=== PATIENT | female | born 1965 | race Caucasian/White ===

== ENCOUNTER → 2016-11-27 | Outpatient (CLI) | payer BC ==
[~2016-11-27] MED LIST: ASPI81TA28 PO; ATOR-22 PO; FURO20TA PO; ISOS30TA51 PO; LISI-729 PO; MAGN1TAB19 PO; MECL1TAB42 PO; METO25TA3 PO; NTRGSL/4 UT; OMEP40CA41 PO; PARO30TA3 PO; POTA10TA32 PO; TICA1TAB PO
[2016-11-27 18:21] LABS: BLOOD UREA NITROGEN 11 mg/dl (7-18); BUN/CREATININE RATIO 11.8 (10-20); CALCIUM 8.9 mg/dl (8.5-10.1); CARBON DIOXIDE 25 mmol/L (21-32); CHLORIDE 105 mmol/L (98-107); CHOLESTEROL 240 mg/dl (0-200); CREATININE 0.95 mg/dl (0.60-1.20); GLUCOSE 104 mg/dl (70-99); POTASSIUM 3.7 mmol/L (3.5-5.1); SODIUM 139 mmol/L (136-145)
[2016-11-27 18:24] LABS: CHOLESTEROL/HDL RATIO 4.8; HDL CHOLESTEROL 50 mg/dl; LDL CHOLESTEROL CALCULATED 132 mg/dl; TRIGLYCERIDES 290 mg/dl (0-150); VERY LOW DENSITY LIPOPROT CALC 58 mg/dl
== END | disposition home or self-care (01) ==
LOC: C.LABPVFM 13:24
PROVIDERS: ATTEND Nurse Practitioner
DX: E78.5 Hyperlipidemia, unspecified (principal); I25.10 Atherosclerotic heart disease of native coronary artery without angina pectoris

== ENCOUNTER 2018-02-04 20:47 | Emergency (ER) | payer BC, OTHER ==
[~2018-02-04] VITALS: Ht 180.3 cm; Wt 91.2 kg
[~2018-02-04 20:47] MED LIST changes: -ISOS30TA51 PO; +ISR/30 PO; -METO25TA3 PO; +METO25TA4 PO
[2018-02-04 20:58] VITALS: TEMP 36.8; Ht 180.3 cm; Wt 91.2 kg
--- NOTE | 2018-02-04 21:37 | DIAGNOSTIC IMAGING REPORT ---
R FINGER(S) MIN 2 VIEWS ROUTINE CLINICAL HISTORY: 52 years-old Female presenting with right ring finger pain. TECHNIQUE: Frontal, oblique, and lateral views of the right fourth finger were obtained. COMPARISON: None. FINDINGS: No acute fracture or malalignment. No advanced degenerative change. No radiographic soft tissue abnormality. IMPRESSION: No acute osseous injury. Electronically signed by: Jj John M.D. 02/04/2018 9:36 PM Dictated Date/Time: 02/04/2018 9:34 PM
[2018-02-04] MEDS ORDERED: ROSU20TA33 PO (22:00)
--- NOTE | 2018-02-04 22:14 | EMERGENCY ROOM VISIT NOTE ---
History First contact with patient: 21:08 Chief Complaint: FINGER PAIN Stated Complaint: RT HAND, 4TH DIGIT PAIN History of Present Illness The patient is a 52 year old female who presents to the Emergency Room with complaints of right fourth finger pain. The patient reports that on 5 hours ago , she was driving and felt pain in her right fourth finger in the proximal medical. She feels that the knuckle is swollen. She states she is having difficulty moving her finger. She reports that there was no injury to the finger. She was out running errands today but does not remember hurting the finger in any way. There has been no redness and no fevers. She denies any history of similar symptoms. She does report arthritis and occasionally has pains in the other knuckles of her fingers. Review of Systems A complete 6 point review of systems was reviewed with the patient with pertinent positives and negatives as per history of present illness. All else were negative. Past Medical/Surgical History Medical Problems: (1) Acute PR (2) Anoxic brain injury (3) Cardiac arrest (4) STEMI (ST elevation myocardial infarction) Family History Diabetes mellitus Heart disease Social History Smoking Status: Current Every Day Smoker Alcohol Use: occasionally Marital Status: single Housing Status: lives alone Occupation Status: retired Current/Historical Medications Scheduled Aspirin (Aspirin Ec), 81 MG PO QAM Furosemide (Lasix), 20 MG PO QAM Lisinopril (Prinivil), 5 MG PO QAM Magnesium Oxide (Mg Supplement (Magnesium Oxide), 400 MG PO BID Metoprolol Succinate (Toprol Xl), 25 MG PO QAM Nitroglycerin (Nitrostat), 0.4 MG UT PRN Paroxetine HCl (Paroxetine), 1 TAB PO QAM Potassium Chloride Microencaps (Potassium Chloride Er), 1 TAB PO BID Rosuvastatin Calcium (Rosuvastatin Calcium), 20 MG PO DAILY Ticagrelor (Brilinta), 1 TAB PO BID Scheduled PRN Meclizine Hcl (Meclizine Hcl), 1 TAB PO TID PRN for VERTIGO Omeprazole (Prilosec), 40 MG PO DAILY PRN for Heartburn Physical Exam Vital Signs Date Time Temp Pulse Resp B/P (MAP) Pulse Ox O2 Delivery O2 Flow Rate FiO2 02/04/18 22:22 74 18 114/71 97 02/04/18 20:58 36.8 81 17 91/60 96 Room Air Physical Exam VITALS: Vitals are noted on the nurse's note and reviewed by myself. Vital signs stable. GENERAL: This is a 52-year-old female, in no acute distress, nondiaphoretic, well-developed well-nourished. SKIN: Capillary reflex less than 2 seconds. HEART: Regular rate and rhythm without murmurs gallops or rubs. LUNGS: Clear to auscultation bilaterally without wheezes, rales or rhonchi. MUSCULOSKELETAL: No obvious abnormalities of the right fourth finger. There is no significant edema on exam. There is no erythema. There is tenderness to palpation of the right fourth MCP. Full range of motion of all fingers. NEURO: Patient was alert and oriented to person place and time. Distal sensation intact. Medical Decision & Procedures ER Provider Diagnostic Interpretation: R FINGER(S) MIN 2 VIEWS ROUTINE CLINICAL HISTORY: 52 years-old Female presenting with right ring finger pain. TECHNIQUE: Frontal, oblique, and lateral views of the right fourth finger were obtained. COMPARISON: None. FINDINGS: No acute fracture or malalignment. No advanced degenerative change. No radiographic soft tissue abnormality. IMPRESSION: No acute osseous injury. Medical Decision Differential diagnosis includes fracture, contusion, sprain, arthritis, cellulitis, among others. The patient was evaluated as above. X-ray of the finger was obtained and read by radiology with no acute findings. There is no evidence of cellulitis on exam. Patient was advised to ice the finger and take [id number] medicine for pain. She was instructed to follow-up with her PCP within 48 hours for a recheck. She will return here with any worsening or new/concerning symptoms. She verbalized understanding of my assessment and treatment plan and was discharged home in good condition. Medication Reconcilliation Current Medication List: was personally reviewed by me Blood Pressure Screening Patient's blood pressure: Normal blood pressure Impression Primary Impression: Finger pain Departure Information Dispostion Home / Self-Care Condition GOOD Referrals Steph Rosen, C.R.N.P (PCP) Patient Instructions My [facility] Additional Instructions For pain control, you can use the following [id number] medicines (if >12 yo): - Regular strength (325mg/tab) Tylenol (acetaminophen) 2 tabs every 4-6 hours as needed. Do not exceed 12 tablets in a 24 hour period. Avoid taking more than 4 grams (4000 mg) of Tylenol per day. This includes any other sources of acetaminophen you may take on a regular basis. Apply ice to the finger to help decrease inflammation. Elevate the finger to help reduce swelling. Follow-up with your primary care provider for recheck. Return to the emergency department with any worsening or new/concerning symptoms. Problem Qualifiers Primary Impression: Finger pain Laterality: right Qualified Codes: M79.644 - Pain in right finger(s)
[2018-02-04 22:22] VITALS: BP 114/71; PULSE 74; O2SAT 97
== END 2018-02-04 22:27 | disposition home or self-care (01) ==
LOC: C.EDB 20:49 → C.EDD 22:27
DX: M79.644 Pain in right finger(s) (principal); I21.3 ST elevation (STEMI) myocardial infarction of unspecified site; F17.200 Nicotine dependence, unspecified, uncomplicated; Z79.82 Long term (current) use of aspirin

== ENCOUNTER → 2018-02-16 | Outpatient (CLI) | payer OTHER ==
[~2018-02-16] MED LIST changes: -ATOR-22 PO; -ISR/30 PO; +ROSU20TA33 PO
[2018-02-16 17:59] LABS: BLOOD UREA NITROGEN 17 mg/dl (7-18); CALCIUM 9.3 mg/dl (8.5-10.1); CARBON DIOXIDE 25 mmol/L (21-32); CREATININE 1.07 mg/dl (0.60-1.20); GLUCOSE 111 mg/dl (70-99); POTASSIUM 3.9 mmol/L (3.5-5.1); SODIUM 140 mmol/L (136-145)
== END | disposition home or self-care (01) ==
LOC: C.LABPVFM 13:46
PROVIDERS: ATTEND Nurse Practitioner
DX: E78.5 Hyperlipidemia, unspecified (principal); I25.10 Atherosclerotic heart disease of native coronary artery without angina pectoris

== ENCOUNTER → 2018-04-27 | Outpatient (CLI) | payer OTHER ==
[~2018-04-27] MED LIST changes: +ROSU20TA24 PO; -ROSU20TA33 PO
--- NOTE | 2018-04-27 16:19 | MAMMOGRAPHY REPORT ---
UNILATERAL RIGHT DIGITAL DIAGNOSTIC MAMMOGRAM TOMOSYNTHESIS AND RIGHT ULTRASOUND: 04/27/2018 CLINICAL HISTORY: 53-year-old woman called back from screening mammography for a 5 mm nodular asymmet ry in the slightly lateral, middle one third of the right breast on the CC tomosynthesis images. TECHNIQUE: Spot compression right CC and MLO tomosynthesis images were obtained. COMPARISON: Comparison is made to exams dated: 04/20/2018 mammogram, 03/05/2016 mammogram, 02/01/2016 ma mmogram, 03/05/2016 ultrasound, 10/20/2014 mammogram, and 01/22/2011 mammogram - [facility] nter. BREAST COMPOSITION: The tissue of right breast is heterogeneously dense, which may obscure small mass es. FINDINGS: The spot compression right CC tomosynthesis view demonstrates complete effacement of the 5 mm nodular asymmetry in the slightly lateral, middle one third of the breast. There is no definite p ersistent architectural distortion, mass, focal asymmetry or suspicious calcification. Further evalu ation with ultrasound was performed. Targeted ultrasound was performed in the lateral right breast including the 12:00, retroareolar and 6 :00 axes. Incidental note is made of an anechoic cyst in the 7:00 axis, 2 cm from the nipple, measur ing approximately 3.4 x 3.2 x 2.1 mm. It is unclear if this could explain the effacing mammographic asymmetry nevertheless it has a benign sonographic appearance. Overall, given the effacement of the nodular asymmetry on additional tomosynthesis images and no susp icious sonographic correlate this most likely represented normal overlapping tissue although given th e discrete nodular appearance on the screening exam, a six-month short interval follow-up right diagn ostic tomosynthesis mammogram and possible ultrasound is recommended to ensure stability. IMPRESSION: ACR-BI-RADS CATEGORY 3: PROBABLY BENIGN, ULTRASOUND ACR-BI-RADS CATEGORY 3: PROBABLY RICKY GN 1. There is effacement of the 5 mm nodular asymmetry with supplemental spot compression tomosynthesi s images, and no suspicious sonographic correlate identified. Although this most likely represented normal overlapping tissue, a short interval follow-up right diagnostic tomosynthesis mammogram and po ssible ultrasound is recommended to ensure stability in 6 months. These results and recommendations were discussed with the patient at the time of the exam. She tenta tively scheduled a follow-up appointment prior to leaving our department. Some breast cancers are not detected with mammography. A negative mammographic report should not cathy y biopsy if a clinically suggestive mass is present. Janay Hernández M.D. ay/:04/27/2018 08:23:56 Barrel Raiser: RT Elyse(R)(M), [facility] letter sent: Follow Up Recommended 3 OVERALL STUDY BIRADS: 3 Probably benign
== END | disposition home or self-care (01) ==
LOC: C.MAMM 07:49
PROVIDERS: ATTEND Nurse Practitioner
DX: N64.89 Other specified disorders of breast (principal)

== ENCOUNTER 2023-03-18 21:27 | Observation (INO) ==
[2023-03-18] MEDS ORDERED: SODIUM CHLORIDE 0.9% 1000ML 500 ML IV ONE (22:07)
[2023-03-18] MEDS ORDERED: ONDANSETRON INJ 2 MG/ML 2 ML VIAL IV STA (22:07)
[2023-03-18] MEDS ORDERED: MoRPHine SULFATE 4 MG/ML 1 ML CARP\\VIAL IV STA ×2 (22:07→23:57)
--- NOTE | 2023-03-18 22:11 | Emergency Department Note ---
Impression & Plan Chest pain ADMIT ED Provider Note HPI: The patient is a very pleasant 58-year-old female who presents the emergency department with a chief complaint of left upper back pain and diaphoresis. Patient states that her symptoms started approximately 1.5 hours prior to arr ival here to the ED. Patient states she did have some milder symptoms dating back to yesterday however they acutely worsened about an hour and half prior to arrival. Patient states she has some pain in the area of her left upper back, she states this does feel similar to the AK she had in the past approximately 9 years ago which did require stent placement. Patient states she is on aspirin and Plavix. On arrival here to the ED the patient is alert, she states her pain is improved from previous. She is hemodynamically stable and saturating well on room air on my initial assessment. ROS: - Per HPI Differential Diagnosis: Acute coronary syndrome, pulmonary embolism, aortic dissection, pneumothorax, amongst other potential pathologies. *Outpatient medications and allergy history reviewed. *Pertinent external medical records reviewed. 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 On arrival here to the ED the patient states her symptoms are improved. IV was established and lab work obtained, patient was placed on quality assurance monitor final. Lab work shows no leukocytosis, hemoglobin is stable at 14.8, platelet count is normal, CMP does not show any critical findings, troponin is negative. EKG does not show any evidence of any acute ischemic changes, no evidence of ST elevation AK. CT angiography of the chest was obtained and shows no evidence of pulmonary embolism, no evidence of any aortic dissection. Prior to my reassessment of the patient I was informed by the bedside RN that she was requesting more pain medicine, patient states she did have some return of the pain in the area of her left upper back. Pain is atypical in nature, however given that it is ongoing and she has significant history of coronary artery disease and previous STEMI with stent I do feel she should be admitted for observation. Patient was in agreement to this plan. Case was discussed with the on-call hospitalist, Dr. Woodson, and the patient was placed for admission in stable condition. Consultants: Hospitalist, Dr. Woodson Disposition discussion held by myself with: Patient Diagnosis: 1. Chest pain, acute 2. History of coronary artery disease status post stent Disposition: ADMIT Omkar Cuevas, DO Emergency Medicine Past Med/Surg History Medical History Biceps tendinitis of left shoulder Biceps tendonitis BPPV (benign paroxysmal positional vertigo) Coronary artery disease GERD (gastroesophageal reflux disease) Greater tuberosity of humerus fracture Hypertension Nose fracture Shoulder dislocation Shoulder, capsulitis, adhesive Vertigo Surgical History H/O knee surgery History of heart artery stent Family History Mother Breast cancer Coronary heart disease Hypertension Cancer Heart disease Colorectal cancer Father Lung cancer Sister Breast cancer Hypertension Cancer Other No family history of adverse response to anesthesia No family history of bleeding disorder Denies family history of Ovarian cancer Prostate cancer Myocardial infarction Social History (Updated 09/04/22 @ 09:52 by Liliana Jacques LPN) Smoking Status: Never smoker Tobacco Type: Cigarettes Cigarettes Per Day: 10; Second Hand Exposure: No; Do You Dip or Chew Tobacco: No; Hx Alcohol Use: Yes (rare) Alcohol Intake Frequency: Monthly or Less Hx Substance Use: No Preferred Language: Uruguayan Communication Ability: Effective Development Manager Required: No marital status: Current Living Situation: Alone current occupational status: retired How many Children do You have: 0 Feels Safe at Home: Yes Childhood Exposure to Second-Hand Smoke: Yes Diet: regular caffeine: Yes (Tea ) Dental Care, Regularly: Yes Physical Activity Frequency: Daily Seatbelt Use: always Sunscreen Use: No Allergies Allergies Allergy/AdvReac Type Severity Reaction Status Date / Time Iodinated Contrast Media AdvReac Intermediate VOMIT Verified 10/03/22 14:17 Home Meds Home Medications Medication Instructions Recorded Confirmed aspirin 81 mg tablet,delayed 81 mg PO DAILY #30 tabs 06/23/19 03/19/23 release nitroglycerin 0.4 mg sublingual 0.4 mg sublingual Q5M PRN Chest 06/23/19 03/19/23 tablet Pain #1 tab cholecalciferol (vitamin D3) 25 25 mcg PO DAILY 09/06/20 03/19/23 mcg (1,000 unit) capsule omeprazole magnesium 20 mg 20 mg PO DAILY PRN Heartburn 03/19/23 03/19/23 tablet,delayed release Previous Rx's Medication Instructions Recorded magnesium oxide 400 mg (241.3 mg 400 mg PO BID #180 tabs 06/29/22 magnesium) tablet clopidogrel 75 mg tablet 75 mg PO DAILY #90 tabs 09/01/22 rosuvastatin 20 mg tablet 20 mg PO DAILY #90 tabs 10/03/22 furosemide 20 mg tablet 20 mg PO DAILY #90 tabs 10/29/22 lisinopril 5 mg tablet 5 mg PO DAILY #90 tabs 10/29/22 metoprolol succinate 25 mg 25 mg PO DAILY #90 tabs 10/29/22 tablet,extended release 24 hr potassium chloride 10 mEq 10 meq PO BID #180 tabs 11/06/22 tablet,extended release paroxetine HCl 40 mg tablet 40 mg PO DAILY #90 tabs 12/31/22 Results & Data (ED) Vital Signs Vital Signs - 24 hr 03/18/23 21:31 03/18/23 21:51 03/18/23 22:00 Temperature 35.5 C L Temperature Source Temporal Artery Scan Pulse Rate 83 67 62 Pulse Rate from SpO2 Sensor 61 Respiratory Rate 20 23 Blood Pressure 113/76 114/79 Blood Pressure Mean 88 90 Pulse Oximetry 94 94 Oxygen Delivery Method Room Air Sepsis Recent Fever Within 48 Hours No Sepsis New/Unexplained Change in Mental Status No Sepsis Action Taken by Nursing No Action Required Laboratory Data 03/18/23 21:34 03/18/23 21:34 Lab Results 03/18/23 03/18/23 03/18/23 Range/Units 21:34 21:34 21:34 WBC 7.36 (4.8-10.8) K/ul RBC 4.61 (4.20-5.40) M/uL Hgb 14.8 (12.0-16.0) g/dl Hct 42.6 (37.0-47.0) % MCV 92.4 (80.0-100.0) fL MCH 32.1 (25.0-34.0) pg MCHC 34.7 (32.0-36.0) g/dL RDW Std Deviation 41.8 (36.4-46.3) fL RDW Coeff of Holden 12.4 (11.5-14.5) % Plt Count 238 (130-400) K/uL MPV 10.3 (9.4-12.4) fL Immature Gran % (Auto) 0.3 % Neut % (Auto) 48.5 % Lymph % (Auto) 40.4 % [place] % (Auto) 7.7 % Eos % (Auto) 2.4 % Baso % (Auto) 0.7 % Neut # (Auto) 3.57 (1.40-6.50) K/uL Lymph # (Auto) 2.97 (1.2-3.4) K/uL [place] # (Auto) 0.57 (0.11-0.59) K/uL Eos # (Auto) 0.18 (0-0.50) K/uL Baso # (Auto) 0.05 (0-0.2) K/uL Immature Gran # (Auto) 0.02 (0.01-0.20) K/uL PT 9.8 (9.0-12.0) Seconds INR 0.9 (0.9-1.1) APTT 24.6 (21.0-31.0) Seconds PTT Ratio 0.9 Sodium 141 (136-145) mmol/L Potassium 3.7 (3.5-5.1) mmol/L Chloride 109 H (98-107) mmol/L Carbon Dioxide 23 (21-32) mmol/L Anion Gap 9 (3-11) BUN 24 H (6-23) mg/dl Creatinine 1.28 H (0.6-1.2) mg/dl Est Cr Clr Drug Dosing 60.0 ml/min Est GFR ( Amer) 53.0 ml/min Est GFR (Non-Af Amer) 45.7 ml/min BUN/Creatinine Ratio 18.8 (10-20) Glucose 141 H (70-99(Fasting)) mg/dl Calcium 9.2 (8.6-10.3) mg/dl Total Bilirubin 0.4 (0.2-1.0) mg/dl AST 26 (13-39) U/L ALT 22 (7-52) U/L Alkaline Phosphatase 75 (34-104) U/L Troponin I High Sens 3.5 (0-14) pg/ml Total Protein 6.8 (6.0-8.3) gm/dl Albumin 4.3 (3.4-5.0) gm/dl Globulin 2.5 (2.5-4.0) gm/dl Albumin/Globulin Ratio 1.7 (0.9-2) SARS-CoV-2, RNA, NAAT (NEGATIVE) 03/19/23 Range/Units Unknown WBC (4.8-10.8) K/ul RBC (4.20-5.40) M/uL Hgb (12.0-16.0) g/dl Hct (37.0-47.0) % MCV (80.0-100.0) fL MCH (25.0-34.0) pg MCHC (32.0-36.0) g/dL RDW Std Deviation (36.4-46.3) fL RDW Coeff of Holden (11.5-14.5) % Plt Count (130-400) K/uL MPV (9.4-12.4) fL Immature Gran % (Auto) % Neut % (Auto) % Lymph % (Auto) % [place] % (Auto) % Eos % (Auto) % Baso % (Auto) % Neut # (Auto) (1.40-6.50) K/uL Lymph # (Auto) (1.2-3.4) K/uL [place] # (Auto) (0.11-0.59) K/uL Eos # (Auto) (0-0.50) K/uL Baso # (Auto) (0-0.2) K/uL Immature Gran # (Auto) (0.01-0.20) K/uL PT (9.0-12.0) Seconds INR (0.9-1.1) APTT (21.0-31.0) Seconds PTT Ratio Sodium (136-145) mmol/L Potassium (3.5-5.1) mmol/L Chloride (98-107) mmol/L Carbon Dioxide (21-32) mmol/L Anion Gap (3-11) BUN (6-23) mg/dl Creatinine (0.6-1.2) mg/dl Est Cr Clr Drug Dosing ml/min Est GFR ( Amer) ml/min Est GFR (Non-Af Amer) ml/min BUN/Creatinine Ratio (10-20) Glucose (70-99(Fasting)) mg/dl Calcium (8.6-10.3) mg/dl Total Bilirubin (0.2-1.0) mg/dl AST (13-39) U/L ALT (7-52) U/L Alkaline Phosphatase (34-104) U/L Troponin I High Sens (0-14) pg/ml Total Protein (6.0-8.3) gm/dl Albumin (3.4-5.0) gm/dl Globulin (2.5-4.0) gm/dl Albumin/Globulin Ratio (0.9-2) SARS-CoV-2, RNA, NAAT NEGATIVE (NEGATIVE) Administered Medications Discontinued Medications Aspirin (Aspirin Chew 324 Mg) 324 mg PO NOW STA Stop: 03/18/23 23:58 Last Admin: 03/19/23 00:03 Dose: 324 mg Documented By: BHARGAV Sodium Chloride (Nss 1000ml) 500 mls @ 999 mls/hr IV .Q31M ONE Stop: 03/18/23 22:37 Last Infusion: 03/18/23 22:44 Dose: 0 mls/hr Documented By: Admin: 03/18/23 22:13 Dose: 999 mls/hr Documented By: AYUSH Ioversol (Optiray 320 500ml) 102 ml IV ONCE ONE Stop: 03/18/23 23:11 Last Admin: 03/18/23 23:10 Dose: 102 ml Documented By: ASHUTOSH Morphine Sulfate (Morphine Sulfate 4 Mg/Ml 1 Ml Carp\Vial) 4 mg IV NOW STA Stop: 03/18/23 22:08 Last Admin: 03/18/23 22:16 Dose: 4 mg Documented By: NRB Morphine Sulfate (Morphine Sulfate 4 Mg/Ml 1 Ml Carp\Vial) 4 mg IV NOW STA Stop: 03/18/23 23:58 Last Admin: 03/18/23 23:59 Dose: 4 mg Documented By: BHARGAV Ondansetron HCl (Ondansetron Inj 2 Mg/Ml 2 Ml Vial) 4 mg IV NOW STA Stop: 03/18/23 22:08 Last Admin: 03/18/23 22:15 Dose: 4 mg Documented By: NRLizeth Imaging Data Radiologist's Impression: Chest CTA 03/18/23 22:08 Exam(s): CTA CHEST IV Amt: 102ml of optiray 320 EXAM: CT Angiography Chest With Intravenous Contrast CLINICAL HISTORY: Reason for exam: PE. TECHNIQUE: Axial computed tomographic angiography images of the chest with intravenous contrast. CTDI is 36 mGy and DLP is 805.5 mGy-cm. Automated exposure control was utilized for the study. A dose lowering technique was utilized adhering to the principles of ALARA. MIP reconstructed images were created and reviewed. COMPARISON: Chest CT 01/23/2015 FINDINGS: Pulmonary arteries: No pulmonary embolism. Aorta: No acute findings.. Normal caliber. No dissection. Lungs: Mild scattered groundglass in the periphery of the upper lobes and dependently in the lower lobes. Some of this represents atelectasis however there may also be a component of atypical infection. Pleural space: Unremarkable. Heart: Unremarkable. Bones/joints: No acute fracture. Soft tissues: Unremarkable. Lymph nodes: Unremarkable. IMPRESSION: 1. No pulmonary embolism. 2. Mild scattered groundglass in the periphery of the upper lobes and dependently in the lower lobes. Some of this represents atelectasis however there may also be a component of atypical infection. Electronically signed by: Lalit Osullivan MD 03/18/23 23:42 PM Discharge Plan Visit Data Chief Complaint: Chest Pain Stated Complaint: HEART ISSUES,SEVERE BACK PAIN,SWEATING,DIFF BREATH ED Provider: Omkar Cuevas Discharge Problem: Chest pain Forms Stand Alone Forms: [facility] [address] [employer] Prescriptions Prescriptions: No Action magnesium oxide 400 mg (241.3 mg magnesium) tablet 400 mg PO BID Qty: 180 3RF clopidogrel 75 mg tablet 75 mg PO DAILY Qty: 90 3RF rosuvastatin 20 mg tablet 20 mg PO DAILY Qty: 90 3RF furosemide 20 mg tablet 20 mg PO DAILY Qty: 90 3RF lisinopril 5 mg tablet 5 mg PO DAILY Qty: 90 3RF metoprolol succinate 25 mg tablet extended release 24 hr 25 mg PO DAILY Qty: 90 3RF potassium chloride 10 mEq tablet extended release 10 meq PO BID Qty: 180 3RF paroxetine HCl 40 mg tablet 40 mg PO DAILY Qty: 90 3RF Rx Instructions: pt aware of dose change nitroglycerin 0.4 mg tablet, sublingual 0.4 mg SL Q5M PRN (Reason: Chest Pain) Qty: 1 aspirin 81 mg tablet,delayed release (DR/EC) 81 mg PO DAILY Qty: 30 cholecalciferol (vitamin D3) 25 mcg (1,000 unit) capsule 25 mcg PO DAILY omeprazole magnesium 20 mg Tablet,Delayed Release (Dr/Ec) 20 mg PO DAILY PRN (Reason: Heartburn) Referrals Referrals: Steph Rosen CRNP [Primary Care Provider] -
[2023-03-18 22:22] LABS: Basophils # (auto) 0.05 K/uL (0-0.2); Basophils % (auto) 0.7 %; Eosinophils # (auto) 0.18 K/uL (0-0.50); Eosinophils % (auto) 2.4 %; Hematocrit (blood only) 42.6 % (37.0-47.0); Hemoglobin 14.8 g/dl (12.0-16.0); Immature Granulocytes # (auto) 0.02 K/uL (0.01-0.20); Immature Granulocytes % (auto) 0.3 %; Lymphocytes # (auto) 2.97 K/uL (1.2-3.4); Lymphocytes % (auto) 40.4 %; Mean Corpuscular Hemoglobin 32.1 pg (25.0-34.0); Mean Corpuscular Hgb Conc 34.7 g/dL (32.0-36.0); Mean Corpuscular Volume 92.4 fL (80.0-100.0); Mean Platelet Volume 10.3 fL (9.4-12.4); Monocytes # (auto) 0.57 K/uL (0.11-0.59); Monocytes % (auto) 7.7 %; Neutrophils # (auto) 3.57 K/uL (1.40-6.50); Neutrophils % (auto) 48.5 %; Platelet Count 238 K/uL (130-400); RDW Coefficient of Variation 12.4 % (11.5-14.5); RDW Standard Deviation 41.8 fL (36.4-46.3); Red Blood Count 4.61 M/uL (4.20-5.40); White Blood Count 7.36 K/ul (4.8-10.8)
[2023-03-18 22:26] LABS: Albumin Globulin Ratio 1.7 (0.9-2); Albumin Level 4.3 gm/dl (3.4-5.0); BUN Creatinine Ratio 18.8 (10-20); Bilirubin,Total 0.4 mg/dl (0.2-1.0); Calcium 9.2 mg/dl (8.6-10.3); Est GFR (Non-African American) 45.7 ml/min; Globulin 2.5 gm/dl (2.5-4.0); Potassium 3.7 mmol/L (3.5-5.1); Total Protein 6.8 gm/dl (6.0-8.3)
[2023-03-18 22:33] LABS: Troponin I High Sensitivity 3.5 pg/ml (0-14)
[2023-03-18 22:36] LABS: INR 0.9 (0.9-1.1); Partial Thromboplastin Ratio 0.9; Partial Thromboplastin Time 24.6 Seconds (21.0-31.0); Prothrombin Time 9.8 Seconds (9.0-12.0)
[2023-03-18] MEDS ORDERED: OPTIRAY 320 500ml IV ONE (23:10)
--- NOTE | 2023-03-18 23:43 | CT Scan Report ---
Exam(s): CTA CHEST IV Amt: 102ml of optiray 320 EXAM: CT Angiography Chest With Intravenous Contrast CLINICAL HISTORY: Reason for exam: PE. TECHNIQUE: Axial computed tomographic angiography images of the chest with intravenous contrast. CTDI is 36 mGy and DLP is 805.5 mGy-cm. Automated exposure control was utilized for the study. A dose lowering technique was utilized adhering to the principles of ALARA. MIP reconstructed images were created and reviewed. COMPARISON: Chest CT 01/23/2015 FINDINGS: Pulmonary arteries: No pulmonary embolism. Aorta: No acute findings.. Normal caliber. No dissection. Lungs: Mild scattered groundglass in the periphery of the upper lobes and dependently in the lower lobes. Some of this represents atelectasis however there may also be a component of atypical infection. Pleural space: Unremarkable. Heart: Unremarkable. Bones/joints: No acute fracture. Soft tissues: Unremarkable. Lymph nodes: Unremarkable. IMPRESSION: 1. No pulmonary embolism. 2. Mild scattered groundglass in the periphery of the upper lobes and dependently in the lower lobes. Some of this represents atelectasis however there may also be a component of atypical infection. Electronically signed by: Lalit Osullivan MD 03/18/23 23:42 PM
[2023-03-18] MEDS ORDERED: ASPIRIN CHEW 324 MG PO STA (23:57)
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
[2023-03-19] MEDS ORDERED: NITROGLYCERIN SL 0.4 MG/TAB TAB SL PRN (02:27)
[2023-03-19] MEDS ORDERED: ACETAMINOPHEN 325 MG TAB PO PRN (02:27)
[2023-03-19] MEDS ORDERED: DOCUSATE SODIUM 100 MG CAP PO PRN (02:27)
[2023-03-19] MEDS ORDERED: ONDANSETRON INJ 2 MG/ML 2 ML VIAL IV PRN (02:27)
[2023-03-19] MEDS: MoRPHine SULFATE 2 MG/ML CARP IV PRN ×3 (03:14→11:58)
--- NOTE | 2023-03-19 07:16 | XRay Report ---
XR chest 1V portable CLINICAL HISTORY: Chest pain, nonspecific COMPARISON STUDY: Chest CT January 23, 2015. Chest radiograph May 09, 2020. FINDINGS: Lung volumes are normal. Lungs are clear. There is no pneumothorax or pleural effusion. Car diac size is normal. Mediastinal contours are normal. There is no evidence for pulmonary edema. IMPRESSION: No acute cardiopulmonary findings. ACT 112: Negative or not required by law. Electronically signed by: Yaw Song M.D. 03/19/2023 7:15 AM
[2023-03-19] MEDS ORDERED: POTASSIUM CHLORIDE 10 MEQ TABCR PO SCH (08:00)
[2023-03-19] MEDS ORDERED: CLOPIDOGREL BISULFATE 75 MG TAB PO SCH (09:00)
[2023-03-19] MEDS ORDERED: ROSUVASTATIN CALCIUM 20 MG TAB PO SCH (09:00)
[2023-03-19] MEDS ORDERED: PARoxetine HCL 20 MG TAB PO SCH (09:00)
[2023-03-19] MEDS ORDERED: METOPROLOL SUCC 25MG EXT REL TAB PO SCH (09:00)
[2023-03-19] MEDS ORDERED: MAGNESIUM OXIDE 400 MG TAB PO SCH (09:00)
[2023-03-19] MEDS ORDERED: lisinopril 5 MG TAB PO SCH (09:00)
[2023-03-19] MEDS ORDERED: FUROSEMIDE 20 MG TAB PO SCH (09:00)
[2023-03-19] MEDS ORDERED: ASPIRIN 81 MG ECTAB PO SCH (09:00)
--- NOTE | 2023-03-19 09:39 | Cardiology Consultation ---
Date of Consultation March 19, 2023 Assessment & Plan (1) Chest pain: (2) Ischemic cardiomyopathy: (3) Obstructive sleep apnea: (4) Dyslipidemia: (5) Coronary artery disease: (6) Hypertension: Plan 1. Back pain/chest pain: Symptoms have been ongoing for since Thursday a.m. with significant increase in symptoms last night. Today her only remaining symptom is left sided upper back pain. Her troponin has been low at 3.5, 3.4, and 3.2 this morning and her EKG has not shown acute changes which is all reassuring that her symptoms are not due to ACS. Chest CTA shows no evidence of PE or aortic dissection. Pericarditis lower in the differential given the nature of her pain. Based on her work up, her pain does not appear to have a cardiac etiology. 2. CAD, Hx of cardiac arrest, s/p GREGG to proximal LAD: Mrs. Noel has a significant history of coronary artery disease. She reports that she takes all of her medications as prescribed and follows routinely with Dr. Frost. Continue with Metoprolol Succinate, Lisinopril, Rosuvastatin, Aspirin, Clopidogrel. 3. Ischemic Cardiomyopathy: Per chart review, her most recent echo showed an EF of 40%, NYHA class 1 (in 2014) and no repeat echo has been completed since. If she still has a low EF, could consider some medication changes (Jardiance, Entresto) although would not make alterations at this time without a new echo. Patient does not appear to have symptoms of heart failure at this time. Continue maintenance Lasix. 4. Hypertension: Continue Metoprolol, Lisinopril. 5. Hyperlipidemia: Continue Rosuvastatin. 6. Tobacco Use: Patient continues to smoke cigarettes daily. Encouraged smoking cessation and further discussion with PCP of medications/tools to help quit. Supervising Physician Co-Signing Physician Notes I saw examined the patient with Dr. Alvarez in agree with her documentation. Briefly, the patient has a history of coronary disease having suffered an acute myocardial infarction in 2013. She subsequently underwent repeat intervention for acute stent thrombosis. Since that time she has actually done quite well. She generally does not have symptoms of exertional dyspnea, back pain or chest pain. She maintains a good level of activity. As described above she did develop symptoms back and shoulder discomfort. This eventually generalized include diaphoresis and nausea. Her symptoms were cardiac stent in nature but t here has been no elevation in her cardiac biomarkers. I think this effectively excludes ischemia as the etiology. She seems to have gotten some relief from morphine. Symptoms are notably pleuritic and positional in nature. No evidence of aortic dissection on her CT scan. I do not think she requires any additional cardiac testing as an inpatient. She does have a history of a cardiomyopathy which could be further evaluated and treated in the outpatient setting. Believe she is stable for discharge from cardiac standpoint on her current medical regimen. History of Present Illness Attending Physician: Colby Salgado, DO History of Present Illness Sanjuana Noel is a 58 year-old female with a past medical history of cardiac arrest in setting of anterior DE (2013) and s/p GREGG to proximal LAD with subsequent subacute stent thrombosis 1 week later requiring repeat PCI, HTN, HLD, sleep apnea, and ischemic cardiomyopathy. She states that on the morning of 03/17 she awoke with pain at the left side of her upper back. She initially thought that she pulled a muscle or slept wrong, but the pain remained throughout the day and into the . The pain is described as sharp and would increase with certain movements (i.e. rotating her torso) as well as with deep breaths. The pain also briefly traveled towards her left shoulder, she later also felt a twinge under her left breast. Her symptoms started to worsen last night around 8pm: the pain increased in intensity and she became nauseated and short of breath. Her only symptom with her prior DE was back pain and she was concerned that this could be another DE so she went to the ED. This morning she is feeling well, still notes upper back pain on her left side especially with movement- but her other symptoms have resolved. She denies any current chest pain, shortness of breath, nausea, lightheadedness, dizziness, or orthopnea. Mrs. Noel is a patient of Dr. Frost, she was most recently seen in office in September 2022. She most recently had a stress test in 2016 after a syncopal episode and her most recent echo showed EF of 40% (unknown year). She states she has taken all of her medications routinely without missing any doses- she is currently taking Metoprolol Succinate, Lisinopril, Lasix, Rosuvastatin, Aspirin, and Clopidogrel. She is a current cigarette smoker and has been smoking on and off for 30-40 years. She notes that she has quit smoking for several years at a time but ends up returning to smoking due to anxiety. Allergies Allergy/AdvReac Type Severity Reaction Status Date / Time Iodinated Contrast Media AdvReac Intermediate VOMIT Verified 10/03/22 14:17 Home Medications Medication Instructions Recorded Confirmed Type aspirin 81 mg tablet,delayed 81 mg PO DAILY #30 tabs 06/23/19 03/19/23 History release nitroglycerin 0.4 mg sublingual 0.4 mg sublingual Q5M PRN Chest 06/23/19 03/19/23 History tablet Pain #1 tab cholecalciferol (vitamin D3) 25 25 mcg PO DAILY 09/06/20 03/19/23 History mcg (1,000 unit) capsule magnesium oxide 400 mg (241.3 mg 400 mg PO BID #180 tabs 06/29/22 03/19/23 Rx magnesium) tablet clopidogrel 75 mg tablet 75 mg PO DAILY #90 tabs 09/01/22 03/19/23 Rx rosuvastatin 20 mg tablet 20 mg PO DAILY #90 tabs 10/03/22 03/19/23 Rx furosemide 20 mg tablet 20 mg PO DAILY #90 tabs 10/29/22 03/19/23 Rx lisinopril 5 mg tablet 5 mg PO DAILY #90 tabs 10/29/22 03/19/23 Rx metoprolol succinate 25 mg 25 mg PO DAILY #90 tabs 10/29/22 03/19/23 Rx tablet,extended release 24 hr potassium chloride 10 mEq 10 meq PO BID #180 tabs 11/06/22 03/19/23 Rx tablet,extended release paroxetine HCl 40 mg tablet 40 mg PO DAILY #90 tabs 12/31/22 03/19/23 Rx omeprazole magnesium 20 mg 20 mg PO DAILY PRN Heartburn 03/19/23 03/19/23 History tablet,delayed release Patient History Medical History Biceps tendinitis of left shoulder Biceps tendonitis BPPV (benign paroxysmal positional vertigo) Coronary artery disease GERD (gastroesophageal reflux disease) Greater tuberosity of humerus fracture Hypertension Nose fracture Shoulder dislocation Shoulder, capsulitis, adhesive Vertigo Surgical History H/O knee surgery History of heart artery stent x2: 2014 Family History Mother Breast cancer Coronary heart disease Hypertension Cancer Heart disease Colorectal cancer Father Lung cancer Sister Breast cancer Hypertension Cancer Other No family history of adverse response to anesthesia No family history of bleeding disorder Denies family history of Ovarian cancer Prostate cancer Myocardial infarction Social History Smoking Status: Current every day smoker Tobacco Type: Cigarettes Cigarettes Per Day: 10 (20 yr history); Second Hand Exposure: No; Do You Dip or Chew Tobacco: No; Tobacco Cessation Education Requested by Patient: No Hx Alcohol Use: Yes Alcohol type: wine Alcohol Intake Frequency: Monthly or Less Hx Substance Use: No Preferred Language: Citizen Of [place] Communication Ability: Effective Induction Coordination Engineer Required: No Beliefs That Will Affect Care: None marital status: Current Living Situation: Alone current occupational status: retired How many Children do You have: 0 Other Information That Helps Us Care for You: No Feels Safe at Home: Yes Safety Concerns: Feels Safe At This Time Childhood Exposure to Second-Hand Smoke: Yes Diet: regular caffeine: Yes (Tea ) Dental Care, Regularly: Yes Physical Activity Frequency: Daily Seatbelt Use: always Sunscreen Use: No Assistive Devices: None Review of Systems Review of Systems: As per above Physical Exam Constitutional: WD/WN, vitals as above Eyes: Anicteric sclerae ENMT: External ears and nose normal. Moist mucous membranes. Respiratory: normal respiratory effort, lungs clear to auscultation Cardiovascular: Rate/Rhythm: regular rate and regular rhythm Heart Sounds: no murmur No lower extremity edema bilaterally. Musculoskeletal: Pain located inferior to left scapula. No reproduction of pain with palpation. Pain with left and right rotation of torso. Skin: no rashes, warm and dry Psychiatric: A+Ox3, euthymic affect Results & Data Vital Signs (Past 12 Hours) Vital Signs Temp Pulse Pulse Resp BP BP Pulse Ox 03/19/23 08:10 36.9 C 52 L 20 98/60 L 92 03/19/23 07:02 55 L 03/19/23 03:30 55 L 03/19/23 02:28 36.4 C L 58 L 18 102/65 94 03/19/23 02:03 50 L 14 91/59 L 93 03/18/23 22:00 62 23 114/79 94 03/18/23 21:51 67 03/18/23 21:31 35.5 C L 83 20 113/76 94 O2 Del Method 03/19/23 08:10 Room Air 03/19/23 07:02 03/19/23 03:30 03/19/23 02:28 Room Air 03/19/23 02:03 Room Air 03/18/23 22:00 03/18/23 21:51 03/18/23 21:31 Room Air PG Care Time/CCT Total # of Minutes Spent Total Time Spent with Patient: Total time spent is greater than 50% in coordination of care (as documented) at patient's floor/unit and/or counseling patient: Coding Level of Care Code 77113 IN/OBS CONSULT LVL 4,60M Diagnoses Chest pain R07.9 Chest pain type: unspecified Ischemic cardiomyopathy I25.5 Obstructive sleep apnea G47.33 Dyslipidemia E78.5 Coronary artery disease I25.10 Hypertension I10 (1) Chest pain Chest pain type: unspecified Qualified Code(s): R07.9 - Chest pain, unspecified
--- NOTE | 2023-03-19 13:28 | XRay Report ---
XR thoracic spine 3V routine CLINICAL HISTORY: L sided upper back pain TECHNIQUE: 3 views of the thoracic spine were obtained. Comparison: None available at the time of this dictation. FINDINGS: No fractures or subluxations are identified. Degenerative changes are seen in the thoracic spine. Ali gnment appears unremarkable. Prevertebral soft tissues are within normal limits. IMPRESSION: Degenerative changes as above without acute fracture or subluxation. ACT 112: Negative or not required by law. Electronically signed by: Darian Cooper M.D. 03/19/2023 1:27 PM
--- NOTE | 2023-03-19 14:59 | Discharge Summary ---
Date of Service March 19, 2023 Admission HPI Per Admitting Provider Sanjuana Noel is a 58yo female with history of CAD s/p anterior STEMI/cardiac arrest and subsequent subacute stent thrombosis in 2013. She has GREGG to proximal LAD. Also with ICM with EF of 40%, HLP and ongoing tobacco abuse. Patient follows with Cardiology - last seen 10/03/22. She presents this evening with chest pain that started 03/18/23 AM. She thinks possibly that she slept wrong. Her pain has been constant throughout the day. Severe to 10/10 at times, stabbing in nature. Located in the left chest and back and below the left shoulder blade. Pain is worse with deep breathing and certain movements. She developed some diaphoresis and clamminess tonight which prompted her to come to the ER. Also with some nausea and shortness of breath. No additional complaints. Patient denies abdominal pain. She denies palpitations. Patient is compliant with her medications - remains on DAPT with ASA and Plavix. She reports being fairly active at home and does not experience exertaional CP or dyspnea. In the ER she is afebrile, HD stable. Briefly low BP after receiving morphine. ER Course: ASA Morphine Zofran Admission Exam Per Admitting Provider General: patient resting comfortably, NAD, non-toxic in appearance, AA&O x 4 Skin: warm, dry, intact, no rashes or lesions HEENT: NC/AT, PERRL, EOMI, anicteric sclera, conjunctiva without injection, external ear normal to inspection and nontender, nares patent, moist mucus membranes, dentition intact, no oropharyngeal lesions, neck supple, trachea midline, no LAD, no thyromegaly, no JVD Heart: +S1/S2, regular, no m/r/g, no chest wall pain Lungs: equal air entry bilaterally, no rales/rhonchi/wheezes Abd: +BS, soft, NT/ND, no masses/organomegaly/ascites Ext: warm, 2+ pulses in UE/LE bilaterally, no clubbing/cyanosis or edema Neuro: nonfocal, patient AA&O x 4, speech intact, no facial droop, moving all extremities on command with equal strength 5/5 Principal Diagnosis Musculoskeletal left upper back pain Discharge Exam Constitutional well developed and well nourished; no acute distress ENMT external ear and nose normal, oropharynx normal Respiratory normal respiratory effort, lungs clear to auscultation Cardiovascular RRR, no murmur, no edema Gastrointestinal (Abdomen) normal bowel sounds, soft, nontender, no hepatosplenomegaly Musculoskeletal no cyanosis or clubbing, extremities motor strength 5/5 Tight, ropey, and tenderness over left upper back-over the belly of the rhomboid muscle Skin no rashes, warm and dry Neurologic patellar DTR's 2+ bilat, sensation intact Psychiatric A+Ox3, euthymic affect Discharge Data Allergies Allergy/AdvReac Type Severity Reaction Status Date / Time Iodinated Contrast Media AdvReac Intermediate VOMIT Verified 10/03/22 14:17 Consultations 03/19/23 00:18 ED Decision to Admit Stat 03/19/23 02:27 Consult Cardiology Routine Ordered Studies 03/18/23 22:08 CT angio chest PE protocol Stat Chest X-Ray 03/18/23 21:33 XR chest 1V portable CLINICAL HISTORY: Chest pain, nonspecific COMPARISON STUDY: Chest CT January 23, 2015. Chest radiograph May 09, 2020. FINDINGS: Lung volumes are normal. Lungs are clear. There is no pneumothorax or pleural effusion. Cardiac size is normal. Mediastinal contours are normal. There is no evidence for pulmonary edema. IMPRESSION: No acute cardiopulmonary findings. ACT 112: Negative or not required by law. Electronically signed by: Yaw Song M.D. 03/19/2023 7:15 AM Chest CTA 03/18/23 22:08 Exam(s): CTA CHEST IV Amt: 102ml of optiray 320 EXAM: CT Angiography Chest With Intravenous Contrast CLINICAL HISTORY: Reason for exam: PE. TECHNIQUE: Axial computed tomographic angiography images of the chest with intravenous contrast. CTDI is 36 mGy and DLP is 805.5 mGy-cm. Automated exposure control was utilized for the study. A dose lowering technique was utilized adhering to the principles of ALARA. MIP reconstructed images were created and reviewed. COMPARISON: Chest CT 01/23/2015 FINDINGS: Pulmonary arteries: No pulmonary embolism. Aorta: No acute findings.. Normal caliber. No dissection. Lungs: Mild scattered groundglass in the periphery of the upper lobes and dependently in the lower lobes. Some of this represents atelectasis however there may also be a component of atypical infection. Pleural space: Unremarkable. Labs 03/18/23 03/18/23 03/18/23 21:34 21:34 21:34 WBC 7.36 RBC 4.61 Hgb 14.8 Hct 42.6 MCV 92.4 MCH 32.1 MCHC 34.7 RDW Std Deviation 41.8 RDW Coeff of [place] 12.4 Plt Count 238 MPV 10.3 Immature Gran % (Auto) 0.3 Neut % (Auto) 48.5 Lymph % (Auto) 40.4 [place] % (Auto) 7.7 Eos % (Auto) 2.4 Baso % (Auto) 0.7 Neut # (Auto) 3.57 Lymph # (Auto) 2.97 [place] # (Auto) 0.57 Eos # (Auto) 0.18 Baso # (Auto) 0.05 Immature Gran # (Auto) 0.02 PT 9.8 INR 0.9 APTT 24.6 PTT Ratio 0.9 Sodium 141 Potassium 3.7 Chloride 109 H Carbon Dioxide 23 Anion Gap 9 BUN 24 H Creatinine 1.28 H Est Cr Clr Drug Dosing 60.0 Est GFR ( Amer) 53.0 Est GFR (Non-Af Amer) 45.7 BUN/Creatinine Ratio 18.8 Glucose 141 H Calcium 9.2 Total Bilirubin 0.4 AST 26 ALT 22 Alkaline Phosphatase 75 Troponin I High Sens 3.5 Total Protein 6.8 Albumin 4.3 Globulin 2.5 Albumin/Globulin Ratio 1.7 SARS-CoV-2, RNA, NAAT 03/19/23 03/19/23 03/19/23 01:27 07:54 14:13 WBC RBC Hgb Hct MCV MCH MCHC RDW Std Deviation RDW Coeff of [place] Plt Count MPV Immature Gran % (Auto) Neut % (Auto) Lymph % (Auto) [place] % (Auto) Eos % (Auto) Baso % (Auto) Neut # (Auto) Lymph # (Auto) [place] # (Auto) Eos # (Auto) Baso # (Auto) Immature Gran # (Auto) PT INR APTT PTT Ratio Sodium Potassium Chloride Carbon Dioxide Anion Gap BUN Creatinine Est Cr Clr Drug Dosing Est GFR ( Amer) Est GFR (Non-Af Amer) BUN/Creatinine Ratio Glucose Calcium Total Bilirubin AST ALT Alkaline Phosphatase Troponin I High Sens 3.4 3.2 3.1 Total Protein Albumin Globulin Albumin/Globulin Ratio SARS-CoV-2, RNA, NAAT 03/19/23 Unknown WBC RBC Hgb Hct MCV MCH MCHC RDW Std Deviation RDW Coeff of [place] Plt Count MPV Immature Gran % (Auto) Neut % (Auto) Lymph % (Auto) [place] % (Auto) Eos % (Auto) Baso % (Auto) Neut # (Auto) Lymph # (Auto) [place] # (Auto) Eos # (Auto) Baso # (Auto) Immature Gran # (Auto) PT INR APTT PTT Ratio Sodium Potassium Chloride Carbon Dioxide Anion Gap BUN Creatinine Est Cr Clr Drug Dosing Est GFR ( Amer) Est GFR (Non-Af Amer) BUN/Creatinine Ratio Glucose Calcium Total Bilirubin AST ALT Alkaline Phosphatase Troponin I High Sens Total Protein Albumin Globulin Albumin/Globulin Ratio SARS-CoV-2, RNA, NAAT NEGATIVE Heart: Unremarkable. Bones/joints: No acute fracture. Soft tissues: Unremarkable. Lymph nodes: Unremarkable. IMPRESSION: 1. No pulmonary embolism. 2. Mild scattered groundglass in the periphery of the upper lobes and dependently in the lower lobes. Some of this represents atelectasis however there may also be a component of atypical infection. Electronically signed by: Lalit Osullivan MD 03/18/23 23:42 PM Thoracic Spine X-Ray 03/19/23 12:13 XR thoracic spine 3V routine CLINICAL HISTORY: L sided upper back pain TECHNIQUE: 3 views of the thoracic spine were obtained. Comparison: None available at the time of this dictation. FINDINGS: No fractures or subluxations are identified. Degenerative changes are seen in the thoracic spine. Alignment appears unremarkable. Prevertebral soft tissues are within normal limits. IMPRESSION: Degenerative changes as above without acute fracture or subluxation. ACT 112: Negative or not required by law. Electronically signed by: Darian Cooper M.D. 03/19/2023 1:27 PM Hospital Course (1) Chest pain: (2) Ischemic cardiomyopathy: (3) Obstructive sleep apnea: (4) Dyslipidemia: (5) Coronary artery disease: (6) Hypertension: Plan Patient initially admitted due to chest pain rule out. We will talk with the patient though patient is not having chest pain but rather back pain on the upper left side. The patient has a history of CAD status post anterior STEMI with subsequent stent in 2013. She states that during this STEMI she had prior back pain similar to what she feels right now. Troponin negative x3, no acute EKG changes. Patient found to be in sinus rhythm. CBC and CMP unremarkable. CBC and CMP unremarkable. Chest x-ray negative, CTA chest showed no pulmonary emboli though did show some mild scattered groundglass in the peripheral of the upper lungs and dependently in the lower lungs which may represent atelectasis or be a component of atypical infection. Infection unlikely due to not having any symptoms of infection at this time. Patient was given some morphine which helped with back pain. Cardio consulted, no further treatment or intervention needed during admission. Thoracic x-ray showed degenerative changes without acute fracture or subluxation. Continue home medications and to follow-up with PCP in 1 week to discuss musculoskeletal back pain. Also encourage patient to replace CPAP machine for obstructive sleep apnea. Total Time Total Time Spent Total Time Spent (In Minutes): I spent 25 minutes seeing the patient, reviewing data, and documenting. Discharge Plan Discharge Items Patient Disposition: Home - Self-Care Reason For Visit: CHEST PAIN Discharge Diagnosis: Musculoskeletal back pain Activity: Resume your previous activity Non-emergency contact: Primary Care Provider Call non-emergency contact if: you have any medication questions, your pain is unusual for you and your temperature is above 101.5 Follow-up/Referrals: Steph Rosen CRNP [Primary Care Provider] - 03/24/23 10:30 am Diet: Heart Healthy Addtl Attending Provider Instructions: You were admitted to the hospital for musculoskeletal left upper back pain. You were treated with pain medication which improved the pain. A discharge summary will be sent to your primary care physician to ensure continuity of care. Please bring this discharge summary with you to your next office appointment so that your provider can review it at that time. Follow-up appointments: * Make a follow-up appointment with your PCP within the next week. It is very important that you follow up with them shortly after discharge from the hospital. * Keep all your follow-up appointments as already scheduled. If you cannot make an appointment, notify your provider. Medications: Your medication list has been reviewed and reconciled upon discharge to ensure accuracy and continuity of care. An updated list of all your medications is included with your hospital discharge paperwork. Please review this list closely, and make note of any changes. * No changes to your medication was made during this visit. * If you have any issues filling these prescriptions, please call [phone] and ask to leave a message for Dr. Montoya. * Take your medications as instructed; do not skip a dose of your medicines. Make sure all of your doctors know every medicine you are taking (including [id number] medicines, vitamins, and supplements). Call your primary care provider before taking any new medicines (including over- the-counter medicines, vitamins, and supplements), because some of these may interact with your current medications, or may make your symptoms worse. Tell your primary care provider if you cannot afford your medications. CONTACT YOUR PRIMARY CARE PROVIDER if you experience any of the following: * Worsening of symptoms * Fever, chills, or fatigue * Difficulty following your treatment plan, or difficulty taking medications CALL 911 OR GO TO THE EMERGENCY DEPARTMENT if you experience any of the fol lowing: * Sudden, severe abdominal pain or nausea/vomiting * Severe chest pain, or chest pain that radiates (moves) to your jaw or arm * Sudden, severe shortness of breath or difficulty breathing Thank you for allowing us to participate in your care. Pending Studies at Discharge: No Stand-Alone Forms: My [facility] Media Battles, Smoking Cessation Medications and DC Order Prescriptions: Continued magnesium oxide 400 mg (241.3 mg magnesium) tablet 400 mg PO BID Qty: 180 3RF clopidogrel 75 mg tablet 75 mg PO DAILY Qty: 90 3RF rosuvastatin 20 mg tablet 20 mg PO DAILY Qty: 90 3RF furosemide 20 mg tablet 20 mg PO DAILY Qty: 90 3RF lisinopril 5 mg tablet 5 mg PO DAILY Qty: 90 3RF metoprolol succinate 25 mg tablet extended release 24 hr 25 mg PO DAILY Qty: 90 3RF potassium chloride 10 mEq tablet extended release 10 meq PO BID Qty: 180 3RF paroxetine HCl 40 mg tablet 40 mg PO DAILY Qty: 90 3RF Rx Instructions: pt aware of dose change nitroglycerin 0.4 mg tablet, sublingual 0.4 mg SL Q5M PRN (Reason: Chest Pain) Qty: 1 aspirin 81 mg tablet,delayed release (DR/EC) 81 mg PO DAILY Qty: 30 cholecalciferol (vitamin D3) 25 mcg (1,000 unit) capsule 25 mcg PO DAILY omeprazole magnesium 20 mg Tablet,Delayed Release (Dr/Ec) 20 mg PO DAILY PRN (Reason: Heartburn) Discharge Orders: Discharge Order (Routine); Ordered 03/19/23 Ordered By: Jose Montoya Admission Data Admit Date/Time: 03/19/23 01:23 Attending Provider: Colby Salgado Admit Provider: Mary Anne Woodson Primary Care Provider: Steph Rosen. Other Providers: Mary Anne Woodson ; Charlie Brown Other Interventions: Discharge Summary Assessment (RN) Last Done: 03/19/23 15:24 Supervising Physician Co-Signing Physician Notes ATTESTATION I also saw the patient and confirmed peña portions of the history and exam. I agree with the impression and plan in the resident documentation, and as summarized below. Upon our late morning exam, the patient was semireclined in bed. She complained of a left thoracic back pain. No chest pain. No dyspnea. EXAM 105/65, 65, 19, 37.2, 90% on room air Alert and oriented. Neck is supple. Heart regular rate and rhythm. Auscultated rate mid 60s Lungs clear with normal respirations Examination of thoracic spine shows no midline tenderness, she does have some point tenderness in the mid thoracic left paraspinal region. This seems to be muscular in nature. The abdomen is soft and nontender. Firm palpation of the epigastric region and right upper quadrant are nontender. DATA Labs Serial troponin 3.5, 3.2, 3.1 Imaging 3 view of thoracic spine shows degenerative changes without acute fracture or subluxation CT of the chest shows no pulmonary embolism. Looks to be some atelectatic changes. IMPRESSION & PLAN Musculoskeletal pain, thoracic back Reassuring EKG, normal troponin History of coronary artery disease Appreciate cardiology consultation Examination today consistent with thoracic back pain, likely muscular etiology CT scan does mention atelectasis with perhaps a component of atypical infection, however patient has no respiratory symptoms (cough/dyspnea) to correlate with this Patient safe to discharge with conservative care for musculoskeletal pain Certainly if develops any infectious type symptoms, she will let us know Additional per resident documentation Resident Activity Tracking Resident Involvement: Resident Care Provided Care Provided: Adult Hospital Medicine
--- NOTE | 2023-03-19 19:25 | Electrocardiogram Report ---
Test Reason : Blood Pressure : / mmHG Vent. Rate : 070 BPM Atrial Rate : 070 BPM P-R Int : 176 ms QRS Dur : 090 ms QT Int : 424 ms P-R-T Axes : 020 -50 060 degrees QTc Int : 457 ms Normal sinus rhythm Left axis deviation Low voltage QRS Poor R wave progression, consider anterior [place] vs. lead placement vs. LVH Abnormal ECG When compared with ECG of 09-MAY-2020 05:40, ST no longer depressed in Anterior leads Confirmed by Carlos Reid ([id number]) on 03/19/2023 7:25:28 PM Referred By: REFERRED SELF Confirmed By:Jluis Reid
== END 2023-03-19 16:41 | disposition home or self-care (01) ==
LOC: ED 21:27 → 2S 21:27 → SUATTDRO 03-19 01:23 → 2S 03-19 02:09